=== PATIENT | male | born 1980 | race Caucasian/White ===

== ENCOUNTER 2018-04-05 10:39 | Observation (INO) ==
[2018-04-05 11:41] LABS: Basophils # 0.1 10*3/uL (0.0-0.2); Basophils % 0.9 % (0.0-0.8); Eosinophils # 0.3 10*3/uL (0.0-0.87); Eosinophils % 2.7 % (0.00-10.9); Hematocrit 43.5 VOL% (42.0-52.0); Hemoglobin 14.2 GM/DL (14.0-18.0); Immature Granulocytes % 0.5 %; Immature Granulocytes Absolute 0.05 #; Lymphocytes # 3.4 10*3/uL (1.4-4.0); Lymphocytes % 34.5 % (21.2-54.2); Mean Corpuscular HGB Conc 32.6 GM/DL (32-36); Mean Corpuscular Hemoglobin 27 PG (27-34); Mean Corpuscular Volume 81.2 FL (87-102); Mean Platelet Volume 10.7 FL (9.6-12.0); Monocytes # 0.5 10*3/uL (0.11-0.8); Monocytes % 4.7 % (1.7-12.7); Neutrophils # 5.5 10*3/uL (1.4-7.4); Neutrophils % 56.7 % (38.7-73.9); Platelet Count 216 T/CUMM (130-400); Red Blood Count 5.36 MC/CUMM (3.8-5.5); Red Cell Distribution Width 14.5 % (9.3-17.3); White Blood Count 9.8 T/CUMM (4-12)
[2018-04-05 11:45] LABS: INR 0.9; PT Patient Result 9.8 SECS
[2018-04-05 12:00] LABS: Alanine Aminotransferase 95 U/L (16-61); Albumin 3.8 G/DL (3.4-5.0); Alkaline Phosphatase 68 U/L (45-117); Aspartate Amino Transferase 45 U/L (0-37); Calcium 8.9 MG/DL (8.5-10.1); Total Protein 7.9 G/DL (6.4-8.3)
[2018-04-05 12:01] LABS: Blood Urea Nitrogen 13 MG/DL (7-18); Glucose 94 MG/DL (74-106); Osmolality,Calculated 274.7 MOS/KG (273-304); Potassium 3.8 MMOL/L (3.5-5.1); Sodium 138 MMOL/L (136-145); Troponin I Only < 0.015 NG/ML (0.00-0.045)
[2018-04-05] MEDS ORDERED: DOCUSATE SODIUM 100 MG CAPSULE PO PRN (13:39)
[2018-04-05] MEDS ORDERED: ACETAMINOPHEN 325 MG TABLET PO PRN (13:39)
[2018-04-05] MEDS ORDERED: guaiFENesin/DM ER 600-30 MG TABLET PO PRN (13:39)
[2018-04-05] MEDS ORDERED: diphenhydrAMINE CAP 25 MG CAPSULE PO PRN (13:39)
[2018-04-05] MEDS ORDERED: ONDANSETRON 4 MG/2 ML VIAL IV PRN (13:39)
[2018-04-05] MEDS ORDERED: ENOXAPARIN 40 MG/0.4 ML SYRINGE SUBCUT SCH (14:00)
[2018-04-05] MEDS: ASPIRIN EC 325 MG TABLET PO SCH (14:55)
[2018-04-05] MEDS: predniSONE 20 MG TABLET PO SCH (14:55)
[2018-04-05] MEDS: PANTOPRAZOLE 40 MG TABLET PO SCH (15:03)
[2018-04-06 07:15] LABS: Basophils % 0.2 % (0.0-0.8); Eosinophils % 0.1 % (0.00-10.9); Hematocrit 42.3 VOL% (42.0-52.0); Hemoglobin 14.4 GM/DL (14.0-18.0); Immature Granulocytes % 0.9 %; Immature Granulocytes Absolute 0.11 #; Mean Corpuscular Hemoglobin 27 PG (27-34); Mean Corpuscular Volume 79.1 FL (87-102); Mean Platelet Volume 11.3 FL (9.6-12.0); Monocytes # 0.7 10*3/uL (0.11-0.8); Monocytes % 5.8 % (1.7-12.7); Neutrophils # 8.8 10*3/uL (1.4-7.4); Platelet Count 217 T/CUMM (130-400); Red Blood Count 5.35 MC/CUMM (3.8-5.5); Red Cell Distribution Width 14.6 % (9.3-17.3); White Blood Count 12.7 T/CUMM (4-12)
[2018-04-06 07:35] LABS: Albumin 3.5 G/DL (3.4-5.0); Bilirubin,Total 0.6 MG/DL (0.2-1.0); Calcium 8.8 MG/DL (8.5-10.1); Total Protein 7.5 G/DL (6.4-8.3)
[2018-04-06 07:36] LABS: Osmolality,Calculated 277.5 MOS/KG (273-304); Potassium 4.2 MMOL/L (3.5-5.1)
[2018-04-06 07:47] LABS: Risk Ratio 5.79; Thyroid Stimulating Hormone 1.67 uIU/ml (0.358-3.74); VLDL CHOLESTEROL 90.6 MG/DL
[2018-04-06] MEDS: predniSONE 20 MG TABLET PO SCH (09:13)
[2018-04-06] MEDS: PANTOPRAZOLE 40 MG TABLET PO SCH (09:14)
[2018-04-06] MEDS: ASPIRIN EC 325 MG TABLET PO SCH (09:14)
[2018-04-06 13:00] VITALS: BP 139/80
[2018-04-06] MEDS ORDERED: PNEUMOCOCCAL VACCINE (23 VALENT) 0.5 ML VIAL IM ONE (13:02)
== END 2018-04-06 12:00 | disposition home or self-care (01) ==
LOC: N.EDINP 10:39 → N.ED 10:39 → N.4E 14:33
PROVIDERS: ADMIT Internal Medicine; ATTEND Internal Medicine